=== PATIENT | female | born 1970 | race Caucasian/White ===

== ENCOUNTER 2017-08-02 16:17 | Observation (INO) | payer BC ==
[~2017-08-02] VITALS: Ht 162.6 cm; Wt 71.8 kg
[2017-08-02] MEDS ORDERED: SODIUM CHLORIDE 0.9% 1000ML 1,000 ML IV SCH (16:27)
--- NOTE | 2017-08-02 16:29 | DIAGNOSTIC IMAGING REPORT ---
HEAD WITHOUT CONTRAST (CT) CLINICAL HISTORY: 47 years-old Female presenting with Sudden onset right sided weakness with severe headache, stroke alert. TECHNIQUE: Multidetector CT imaging of the head was performed without the use of intravenous contrast. IV contrast: None. A dose lowering technique was used consistent with the principles of ALARA (as low as reasonably achievable). COMPARISON: None. CT DOSE (mGy.cm): The estimated cumulative dose is 679.75 mGycm. FINDINGS: Director Clinical Applications topogram: Unremarkable. Ventricles and sulci normal in size. Brain parenchyma normal in appearance with preserved tanner-white differentiation. No mass effect or midline shift. No hemorrhage or acute territorial infarct. No extra-axial fluid collection. Paranasal sinuses and mastoid air cells clear. Calvarium intact. IMPRESSION: 1. No acute intracranial pathology. Electronically signed by: Reji De Guzman M.D. 08/02/2017 4:28 PM Dictated Date/Time: 08/02/2017 4:26 PM
[2017-08-02 16:45] LABS: BASO % 0.7 %; BASO ABS # 0.05 K/uL (0-0.2); COMPLETE YES; EOS % 1.4 %; HEMATOCRIT 40.8 % (37-47); IG% 0.1 %; LYMPH % 31.2 %; LYMPH ABS # 2.19 K/uL (1.2-3.4); MEAN CELL VOLUME 86.6 fL (80-100); MEAN CORPUSCULAR HEMOGLOBIN 30.4 pg (25-34); MEAN PLATELET VOLUME 10.4 fL (7.4-10.4); MONO % 8.7 %; NEUT % 57.9 %; PLATELET COUNT 294 K/uL (130-400); RED BLOOD COUNT 4.71 M/uL (4.2-5.4); WHITE BLOOD COUNT 7.03 K/uL (4.8-10.8)
[2017-08-02 16:55] LABS: INR 0.9 (0.9-1.1); PARTIAL THROMBOPLASTIN RATIO 1.1; PROTHROMBIN TIME (PATIENT) 9.9 SECONDS (9.0-12.0)
[2017-08-02 17:03] LABS: BLOOD UREA NITROGEN 11 mg/dl (7-18); BUN/CREATININE RATIO 14.1 (10-20); CALCIUM 8.2 mg/dl (8.5-10.1); CARBON DIOXIDE 28 mmol/L (21-32); CHLORIDE 105 mmol/L (98-107); GLUCOSE 95 mg/dl (70-99); POTASSIUM 4.1 mmol/L (3.5-5.1); SODIUM 138 mmol/L (136-145)
[2017-08-02 17:08] LABS: CKMB/CK RATIO 1.2 (0-3.0)
[2017-08-02] MEDS ORDERED: KETOROLAC TROMETHAMINE 30 MG/ML VIAL IV STA (17:18)
[2017-08-02] MEDS ORDERED: PROCHLORPERAZINE 5 MG/ML 2 ML VIAL IV STA (17:18)
[2017-08-02] MEDS ORDERED: METHYLPREDNISOLONE 125 MG VIAL IV STA (17:18)
[2017-08-02] MEDS ORDERED: DiphenhydrAMINE HCL 50 MG/ML VIAL IV STA (17:18)
[2017-08-02] MEDS ORDERED: CITA40TA4 PO (17:30)
[2017-08-02] MEDS ORDERED: SYN200 PO (17:30)
[2017-08-02] MEDS ORDERED: PRM625 PO (17:30)
[2017-08-02] MEDS ORDERED: TRAM-10 PO (17:30)
[2017-08-02] MEDS ORDERED: IMITREX PO (17:30)
[2017-08-02] MEDS ORDERED: ONDANSETRON INJ 2 MG/ML 2 ML VIAL IV PRN (18:15)
[2017-08-02] MEDS ORDERED: ALUMINUM/MAGNESIUM/SIMETH (MAALOX MAX) 30 ML UDC PO PRN (18:15)
[2017-08-02] MEDS ORDERED: TRAMADOL HCL 50 MG TAB PO PRN (18:15)
[2017-08-02] MEDS ORDERED: PHARMACIST DISCHARGE MED REC CONSULT PRN (18:15)
[2017-08-02] MEDS ORDERED: ACETAMINOPHEN 325 MG TAB PO PRN (18:15)
[2017-08-02] MEDS ORDERED: NITROGLYCERIN 0.4 MG SL PER TAB CHARGE SL PRN (18:15)
[2017-08-02] MEDS ORDERED: SODIUM CHLORIDE 0.9% 1000ML 1,000 ML IV ONE (18:15)
[2017-08-02] MEDS ORDERED: MAGNESIUM HYDROXIDE SUSP 30 ML UDC PO PRN (18:15)
[2017-08-02] MEDS ORDERED: POLYETHYLENE (MIRALAX) 17 GM PACK PO PRN (18:15)
[2017-08-02] MEDS ORDERED: KETOROLAC TROMETHAMINE 15 MG/ML VIAL IM ONE (18:30)
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
[2017-08-02 20:17] VITALS: BP 123/76; PULSE 59; TEMP 36.7; O2SAT 94; Ht 162.6 cm; Wt 71.8 kg
[2017-08-02] MEDS: KETOROLAC TROMETHAMINE 30 MG/ML VIAL IV PRN (20:44)
[2017-08-02] MEDS ORDERED: LEVOTHYROXINE 200 MCG TAB PO SCH (21:00)
[2017-08-02] MEDS ORDERED: ESTROGENS, CONJUGATED 0.625 MG TAB PO SCH (21:00)
[2017-08-02] MEDS ORDERED: ATORVASTATIN 40 MG TAB PO SCH (21:00)
[2017-08-02] MEDS ORDERED: CITALOPRAM 40 MG TAB PO SCH (21:00)
[2017-08-02] MEDS ORDERED: IV FLUIDS COMPLETED PRN (22:00)
--- NOTE | 2017-08-02 23:03 | DIAGNOSTIC IMAGING REPORT ---
CAROTID DOPPLER NECK ART CLINICAL HISTORY: 47 years-old Female presenting with Stroke. TECHNIQUE: Real-time grayscale and color and spectral Doppler ultrasound imaging of the bilateral carotid arteries was performed. NASCET criteria was used in evaluating this study. COMPARISON: None. FINDINGS: Right: Common carotid: Patent. Peak systolic velocity 101 cm/s. Internal carotid artery: Mild atherosclerosis of the proximal ICA. Peak systolic velocity 65 cm/s. External carotid artery: Patent. Peak systolic velocity 74 cm/s. Systolic ratio: 0.64. Left: Common carotid: Patent. Peak systolic velocity 119 cm/s. Internal carotid artery: Mild atherosclerosis of the proximal ICA. Peak systolic velocity 67 cm/s. External carotid artery: Patent. Peak systolic velocity 71 cm/s. Systolic ratio: 0.56. Bilateral antegrade flow within the vertebral arteries. Reference ranges: Stenosis measurements are compared to reference velocity parameters. Normal ICA peak systolic velocity less than 125 cm/s. Normal ICA peak systolic velocity to common carotid artery velocity ratio is less than 2: less than 2 equates to less than 50% stenosis, 2-4 equates to 50-69% stenosis, greater than 4 equates to greater than or equal to 70% stenosis. Normal ICA end-diastolic velocity less than 40. Blood pressure Brachial: Right: 121/74 mmHg, Left: 120/70 mmHg. IMPRESSION: No hemodynamically significant stenosis seen within the carotid arteries. Electronically signed by: Reji De Guzman M.D. 08/02/2017 11:02 PM Dictated Date/Time: 08/02/2017 11:01 PM
[2017-08-02] MEDS ORDERED: GADAVIST IV PRN (23:30)
[2017-08-02 23:35] VITALS: BP 102/57; PULSE 66; TEMP 36.4; O2SAT 97
[2017-08-03 04:50] VITALS: BP 103/67; PULSE 68; TEMP 36.7; O2SAT 96
[2017-08-03 04:55] VITALS: BP 149/82; PULSE 89; TEMP 37.3; O2SAT 97
[2017-08-03] MEDS: KETOROLAC TROMETHAMINE 30 MG/ML VIAL IV PRN ×2 (05:06→11:14)
[2017-08-03 06:49] LABS: ESTIMATED AVERAGE GLUCOSE 105 mg/dl; HA1C FLAG Normal (Normal)
--- NOTE | 2017-08-03 07:16 | DIAGNOSTIC IMAGING REPORT ---
Brain MRI WITH AND WITHOUT CONTRAST HISTORY: Headaches. Stroke TECHNIQUE: Multiplanar multisequence MRI of the brain was performed both before and after the intravenous administration of contrast. COMPARISON STUDY: Head CT 08/02/2017. FINDINGS: There are no areas of restricted diffusion to suggest acute infarction. The midline structures are intact. The paranasal sinuses are clear. The mastoid air cells are clear. The ventricles and sulci are within normal limits for age. There is no mass, hematoma, midline shift. The major vascular flow-voids at the skull base are well maintained. Postcontrast sequences show no areas of abnormal enhancement. There is a prominent sulcus versus a small arachnoid cyst within the left posterior parietal location. This measures 1.4 cm. This is of doubtful clinical significance. IMPRESSION: No acute intracranial abnormality. Electronically signed by: Festus Frias M.D. 08/03/2017 7:14 AM Dictated Date/Time: 08/03/2017 7:09 AM
[2017-08-03 08:36] LABS: BASO % 0.1 %; BASO ABS # 0.01 K/uL (0-0.2); COMPLETE YES; HEMATOCRIT 39.5 % (37-47); IG% 0.1 %; LYMPH % 11.9 %; LYMPH ABS # 1.12 K/uL (1.2-3.4); MEAN CELL VOLUME 85.9 fL (80-100); MEAN CORPUSCULAR HEMOGLOBIN 30.2 pg (25-34); MEAN CORPUSCULAR HGB CONC 35.2 g/dl (32-36); MEAN PLATELET VOLUME 10.6 fL (7.4-10.4); MONO % 2.9 %; PLATELET COUNT 288 K/uL (130-400); WHITE BLOOD COUNT 9.42 K/uL (4.8-10.8)
[2017-08-03 08:37] VITALS: BP 106/70; PULSE 71; TEMP 36.6; O2SAT 95
[2017-08-03] MEDS ORDERED: ASPIRIN 81 MG ECTAB PO SCH (09:00)
[2017-08-03] MEDS ORDERED: PROPRANOLOL HCL 60 MG LA CAP PO SCH (09:00)
[2017-08-03 09:09] LABS: BLOOD UREA NITROGEN 11 mg/dl (7-18); BUN/CREATININE RATIO 17.8 (10-20); CALCIUM 8.4 mg/dl (8.5-10.1); CARBON DIOXIDE 26 mmol/L (21-32); CHLORIDE 106 mmol/L (98-107); CREATININE 0.63 mg/dl (0.60-1.20); GLUCOSE 125 mg/dl (70-99); POTASSIUM 3.8 mmol/L (3.5-5.1); SODIUM 137 mmol/L (136-145)
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
[2017-08-03 09:20] LABS: CHOLESTEROL 208 mg/dl (0-200); CHOLESTEROL/HDL RATIO 2.5; HDL CHOLESTEROL 83 mg/dl; LDL CHOLESTEROL CALCULATED 115 mg/dl; THYROID STIMULATING HORMONE 0.012 uIu/ml (0.300-4.500); TRIGLYCERIDES 48 mg/dl (0-150); VERY LOW DENSITY LIPOPROT CALC 10 mg/dl
[2017-08-03] MEDS ORDERED: VALPROATE SOD IV 500 MG in DEXTROSE 5% 50ML 50 ML IV SCH (10:00)
--- NOTE | 2017-08-03 10:30 | ECHOCARDIOGRAM REPORT ---
*NOTICE TO RECEIVING REPUBLICAN AGENCY This information is strictly Confidential and protected under [place] law. [place] law prohibits you from making any further disclosure of this information unless further disclosure is expressly permitted by the written consent of the person to whom it pertains or is authorized by law. A general authorization for the release of medical or other information is not sufficient for this purpose. Hospital accepts no responsibility if the information is made available to any other person, INCLUDING THE PATIENT. Interpretation Summary * Name: HARRY HOFFMAN Study Date: 08/03/2017 07:11 AM BP: 103/67 mmHg * Patient Location: .2T\S\S241\S\1 HR: 73 * : 1970 (M/d/yyyy) Gender: Female Height: 64 in * Age: 47 yrs Ethnicity: [place] Weight: 164 lb * Ordering Physician: Janice Washington * Referring Physician: Self, Referred * Performed By: Chana Mao RCS * * Reason For Study: CEREBRAL ISCHEMIA / EMBOLUS * BSA: 1.8 m2 * Normal transthoracic echocardiogram. * -- Conclusions -- * Left ventricular systolic function is normal. * Diastolic function is normal * Injection of contrast documented no interatrial shunt. Procedure Details * A complete two-dimensional transthoracic echocardiogram was performed (2D, M-mode, Doppler and color flow Doppler). * A saline contrast injection was performed to assess for cardiac shunting. * The injection was performed through an intravenous line in the left arm. * The attending nurse who injected the saline contrast was EDWARDO BETTENCOURT, RN. Left Ventricle * The left ventricle is not well visualized. * There is normal left ventricular wall thickness. * Left ventricular systolic function is normal. * Ejection Fraction = 60-65%. * Diastolic function is normal * The left ventricular wall motion is normal. Right Ventricle * The right ventricle is normal in size and function. Atria * The left atrial size is normal. * Right atrial size is normal. * Injection of contrast documented no interatrial shunt. Mitral Valve * The mitral valve anatomy is normal. * Significant mitral regurgitation is absent. Tricuspid Valve * The tricuspid valve anatomy is normal. * Significant tricuspid regurgitation is absent. Aortic Valve * The aortic valve is normal in structure and function. * The aortic valve is trileaflet. * No hemodynamically significant valvular aortic stenosis. * There is no significant aortic regurgitation. Great Vessels * The aortic root is normal size. Pericardium/Pleural * There is no pericardial effusion. MMode 2D Measurements and Calculations IVSd 1.0 cm IVSs 1.2 cm LVIDd 4.7 cm LVIDs 3.0 cm LVPWd 0.82 cm LVPWs 0.99 cm IVS/LVPW 1.3 FS 35.9 % EDV(Teich) 103.5 ml ESV(Teich) 35.8 ml EF(Teich) 65.4 % EDV(cubed) 105.4 ml ESV(cubed) 27.8 ml EF(cubed) 73.6 % % IVS thick 17.1 % % LVPW thick 21.1 % LV mass(C)d 150.6 grams LV mass(C)dI 83.8 grams/m\S\2 LV mass(C)s 97.4 grams LV mass(C)sI 54.2 grams/m\S\2 SV(Teich) 67.7 ml SI(Teich) 37.7 ml/m\S\2 SV(cubed) 77.6 ml SI(cubed) 43.1 ml/m\S\2 Ao root diam 2.7 cm Ao root area 5.6 cm\S\2 ACS 2.0 cm LA dimension 2.7 cm LA/Ao 1.0 LVOT diam 2.0 cm LVOT area 3.0 cm\S\2 Doppler Measurements and Calculations MV E max lindsey 78.7 cm/sec MV A max lindsey 77.1 cm/sec MV E/A 1.0 MV P1/2t max lindsey 92.3 cm/sec MV P1/2t 65.7 msec MVA(P1/2t) 3.3 cm\S\2 MV dec slope 411.5 cm/sec\S\2 MV dec time 0.21 sec Ao V2 max 115.6 cm/sec Ao max PG 5.3 mmHg Ao max PG (full) 2.1 mmHg [place](V,A) 2.4 cm\S\2 [place](V,D) 2.4 cm\S\2 LV V1 max PG 3.2 mmHg LV V1 max 90.1 cm/sec PA V2 max 94.9 cm/sec PA max PG 3.6 mmHg
[2017-08-03] MEDS ORDERED: METHYLPREDNISOLONE IV 500 MG in DEXTROSE 5% 250ML 250 ML IV SCH (11:00)
[2017-08-03] MEDS ORDERED: PROC1TAB5 PO (11:48)
[2017-08-03] MEDS ORDERED: TRAM-10 PO (11:48)
[2017-08-03] MEDS ORDERED: VLT50 PO (11:48)
[2017-08-03] MEDS ORDERED: METH4PAK PO (11:48)
[2017-08-03] MEDS ORDERED: INDSR60 PO (11:48)
--- NOTE | 2017-08-03 11:59 | Discharge Instructions ---
Discharge Instructions Date of Service Aug 03, 2017. Admission Reason for Admission: Stroke-Like Symptom Discharge Discharge Diagnosis / Problem: Complex migraine Discharge Goals Goal(s): Decrease discomfort, Improve function, Diagnostic testing, Therapeutic intervention Activity Recommendations Activity Limitations: resume your previous activity (as tolerated) . Instructions / Follow-Up Instructions / Follow-Up You were admitted to the hospital with a severe headache, changes in vision, as well as numbness, tingling, and weakness in the right side. You were admitted to rule out a stroke. Your head CT and brain MRI were both negative for stroke. You were evaluated by neurology. Your symptoms appear to be secondary to a complex migraine. Some changes have been made to your medications per neurology recommendations. As you are feeling better, you are medically stable for discharge. Medications: *You have been given a prescription for tramadol 50 mg by mouth every 6 hours as needed for pain/migraine. *You may take diclofenac 50 mg by mouth three times a day as needed for pain, as well as Compazine 10 mg by mouth every 6 hours as needed for migraine or nausea. *Please take your Medrol dose pack as instructed. This is an oral steroid. *You have been started on propranolol 60 mg by mouth daily for migraine prophylaxis. *Neurology has recommended that you STOP Imitrex as this is relatively contraindicated due to your right sided weakness that developed with this migraine. *Continue your other home medications as prescribed. Follow up: *You have been scheduled to follow up with Karo Gracia PA-C on August 10 at 10:45 am. *You have been scheduled to follow up with Luli Aparicio PA-C of neurology on August 30 at 10:00 am. Please seek medical attention if you experience fevers, chills, sweats, dizziness/lightheadedness, loss of consciousness, changes in vision, chest pain , shortness of breath, nausea, vomiting, weakness particularly on one side, numbness, or tingling. Current Hospital Diet Patient's current hospital diet: Regular Diet Discharge Diet Recommended Diet: Regular Diet Pending Studies Studies pending at discharge: no Laboratory Results Hemoglobin A1c Test 08/02/17 16:41 Range/Units Estimated Average Glucose 105 mg/dl Hemoglobin A1c 5.3 4.5-5.6 % Lipid Panel Test 08/03/17 08:13 Range/Units Triglycerides Level 48 0-150 mg/dl Cholesterol Level 208 H 0-200 mg/dl HDL Cholesterol 83 mg/dl Cholesterol/HDL Ratio 2.5 LDL Cholesterol, Calculated 115 mg/dl Medical Emergencies . Who to Call and When: Medical Emergencies: If at any time you feel your situation is an emergency, please call 911 immediately. . Non-Emergent Contact Non-Emergency issues call your: Primary Care Provider, Neurologist Call Non-Emergent contact if: you have a fever, your pain is not controlled, your pain is worsening, your pain is unusual for you, your pain is concerning you, you have any medication questions . Past History Medical & Surgical History: (1) Migraine . "Provider Documentation" section prepared by Yi Fritz. . VTE Core Measure Inpt VTE Proph given/why not?: Enoxaparin (Lovenox)Marely WILSON, SCD's [place] Drug Monitoring Program Search Results: patient reviewed within database, no issues identified
[2017-08-03] MEDS ORDERED: PROMETHAZINE HCL INJ 25 MG in SODIUM CHLORIDE 0.9% 50ML 50 ML IV SCH (12:00)
--- NOTE | 2017-08-03 12:07 | EMERGENCY ROOM VISIT NOTE ---
History Report prepared by Alok: Luis Wong Under the Supervision of: Dr. Matt Ramesh M.D. First contact with patient: 16:13 Stated Complaint: STROKE ALERT History of Present Illness The patient is a 47 year old female who presents to the Emergency Room by EMS with complaints of persistent stroke-like symptoms beginning one hour ago. Her symptoms include right arm weakness, difficulty walking, and a headache. She states that she had a headache all day today that was gradually worsening but then suddenly became excruciating one hour ago. The patient has a history of migraines with her most recent migraine occurring a few weeks ago. She states that her current symptoms do not feel like her typical migraine. She was given Fentanyl en route, but nothing has improved her symptoms. Source of History: patient Onset: One hour ago Quality: other (stroke-like symptoms) Timing: other (persistent) Modifying Factors (Relieving): other (none) Associated Symptoms: + headache, + weakness (right arm) Note: Additional symptoms: difficulty walking. Review of Systems See HPI for pertinent positives & negatives. A total of 10 systems reviewed and were otherwise negative. Past Medical & Surgical Medical Problems: (1) Migraine (2) Stroke-like symptom Family History No pertinent family history stated. Social History Marital Status: in relationship Current/Historical Medications Scheduled Citalopram (Citalopram Hydrobromide), 40 MG PO QPM Estrogens, Conjugated (Premarin), 0.625 MG PO QPM Levothyroxine Sodium (Synthroid), 200 MCG PO QPM Methylprednisolone (Medrol Dosepak), 1 PKT PO UD Propranolol HCl (Propranolol HCl ER), 60 MG PO QAM Scheduled PRN Diclofenac Sod (Diclofenac Sodium Dr), 50 MG PO TID PRN for Pain Prochlorperazine Maleate (Compazine), 1 TAB PO Q6 PRN for Migraine or nausea Tramadol (Ultram), 50 MG PO Q6 PRN for Pain [Imitrex], 1 DOSE PO Q8 PRN for Headache Allergies Coded Allergies: No Known Allergies (Unverified , 08/02/17) Physical Exam Vital Signs Date Time Temp Pulse Resp B/P (MAP) Pulse Ox O2 Delivery O2 Flow Rate FiO2 08/02/17 17:00 65 18 157/87 99 Room Air 08/02/17 16:40 80 14 153/81 99 Room Air 08/02/17 16:30 62 08/02/17 16:20 99 Room Air 08/02/17 16:19 36.7 61 18 135/76 97 Room Air Physical Exam GENERAL: Patient is uncomfortable appearing and in moderate distress. HEENT: No acute trauma, normocephalic atraumatic, mucous membranes moist, no nasal congestion, no scleral icterus. NECK: No stridor, no adenopathy, no meningismus, trachea is midline. LUNGS: No dyspnea. Clear to auscultation and equal bilaterally. No wheeze, no rhonchi. HEART: Regular rate and rhythm. No murmurs, rubs, gallops appreciated. ABDOMEN: Soft, nontender, bowel sounds positive, no masses appreciated, no peritonitis. BACK: No midline tenderness, no CVA tenderness EXTREMITIES: Normal motion all extremities, no cyanosis, no edema. NEUROLOGIC: Alert and oriented. Clenching of the right hand with good strength but slow movements. Able to life bilateral arms though periodically left arm drifts. Keeps eyes clenched throughout exam and only opens them briefly. SKIN: No rash, no jaundice, no diaphoresis. 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 Ventricles and sulci normal in size. Brain parenchyma normal in appearance with preserved tanner-white differentiation. No mass effect or midline shift. No hemorrhage or acute territorial infarct. No extra-axial fluid collection. Paranasal sinuses and mastoid air cells clear. Calvarium intact. IMPRESSION: 1. No acute intracranial pathology. Electronically signed by: Reji De Guzman M.D. 08/02/2017 4:28 PM Laboratory Results Test 08/02/17 16:20 08/02/17 16:41 08/02/17 16:45 08/02/17 16:46 Prothrombin Time 9.9 SECONDS (9.0-12.0) Prothromb Time International Ratio 0.9 (0.9-1.1) Activated Partial Thromboplast Time 27.4 SECONDS (21.0-31.0) Partial Thromboplastin Ratio 1.1 Total Creatine Kinase 49 U/L (26-192) Estimated Average Glucose 105 mg/dl Hemoglobin A1c 5.3 % (4.5-5.6) Bedside Prothrombin Time INR 0.9 (0.9-1.1) Bedside Glucose 99 mg/dl (70-90) Laboratory results as reviewed by me. Medications Administered Medications (Trade) Dose Ordered Sig/Anneliese Route Start Time Stop Time Status Last Admin Dose Admin Sodium Chloride 1,000 ml @ 50 mls/hr Q20H IV 08/02/17 16:27 08/02/17 18:17 DC 08/02/17 16:27 50 MLS/HR Ketorolac Tromethamine (Toradol Inj) 15 mg NOW STAT IV 08/02/17 17:18 08/02/17 17:20 DC 08/02/17 17:31 15 MG Prochlorperazine Edisylate (Compazine Inj) 10 mg NOW STAT IV 08/02/17 17:18 08/02/17 17:20 DC 08/02/17 17:31 10 MG Diphenhydramine HCl (Benadryl Inj) 50 mg NOW STAT IV 08/02/17 17:18 08/02/17 17:20 DC 08/02/17 17:31 50 MG Methylprednisolone Sodium Succinate (Solu-Medrol IV) 125 mg NOW STAT IV 08/02/17 17:18 08/02/17 17:20 DC 08/02/17 17:30 125 MG ECG Indication: other (Neurologic symptoms) Rate (beats per minute): 58 Rhythm: sinus bradycardia Findings: no acute ischemic change, no ectopy ED Course 1617: The patient was taken straight to CT. The patient was evaluated in room B1. A complete history and physical exam was performed. 1627: Ordered Sodium Chloride 1000 ml @ 50 mls/hr IV. 1718: Ordered Solu-Medrol 125 mg IV, Benadryl Inj 125 mg IV, Compazine Inj 10 mg IV, Toradol Inj 15 mg IV. 1730: Upon reevaluation, the patient is resting. Discussed results and treatment plan with the patient. She verbalized understanding and agreement with the treatment plan. The patient will be evaluated for further management. Medical Decision Differential: Headache, Migraine, Cluster Headache, Seizure, Meningitis, Sinusitis, CO exposure, ICH/SAH, Infectious, Tumor, Sinus Thrombosis, Arterial Dissection, amongst other pathologies entertained. 47 yr old female with long standing migraine history along with depression arrives for evaluation of headache associated with right sided weakness. Timeline a bit unclear though she initially, and EMS make very clear symptoms suddenly worsened around 3:15pm after initially starting with headache throughout the morning. Diffuse throbbing headache throughout AM, suddenly with significant worsening at 3:15pm associated with difficulty using right arm. Apparently unable to ambulate correctly for EMS. Patient makes clear primary concern is headache. Admits periodic ED visits for migraines to other hospitals. Neuro exam is somewhat varied with her being able to do pretty much entire neuro exam, but often requiring us to ask multiple times. Hand issues seem more spasm than inability to use hand. Given unusual symptomatology, but recent onset, felt Stroke Alert reasonable to get acute neurology evaluation. By this time patient now apparently stating symptoms worsened earlier in day. After extensive review by Neurologist decision between him and patient is to hold on TPA, which I think is reasonable. Patient will be brought in to hospital for further evaluation/treatment. I at this time opted to treat headache (which was previously held to avoid disturbing neuro exam/decision making). Above given and patient brought in to hospitalist service for further evaluation. I do not feel that this requires emergent LP as I do not feel this is meningitis/encephalitis and I do not feel that it is SAH, given recent onset symptoms with no blood on CT head. No evidence of dissection either. Consults Time Called: 1625 Consulting Physician: Dr. Webster -Neurology Returned Call: 1630 Discussed the patient's case. Dr. Webster will evaluate the patient. 1718: I spoke with Dr. Webster again. He does not feel that TPA is indicated. Additional Consults: Time Called: 1730 Consulted Physician: Dr. Jones -[facility] [place] Returned Call: 1736 Additional Comments: Discussed the patient's case. The patient will be evaluated for further treatment and disposition. Impression Primary Impression: Headache Additional Impression: Right sided weakness Scribe Attestation The scribe's documentation has been prepared under my direction and personally reviewed by me in its entirety. I confirm that the note above accurately reflects all work, treatment, procedures, and medical decision making performed by me. Departure Information Dispostion Being Evaluated By Hospitalist Prescriptions Methylprednisolone (MEDROL DOSEPAK) 4 Mg Joseph 1 PKT PO UD for 6 Days, #1 PKT Prov: Yi Fritz ., TYRON 08/03/17 Prochlorperazine Maleate (COMPAZINE) 10 Mg Tab 1 TAB PO Q6 Y for Migraine or nausea for 7 Days, #28 TAB 3 Refills Prov: Yi Fritz .TYRNO 08/03/17 Diclofenac Sod (Diclofenac Sodium Dr) 50 Mg Tabec 50 MG PO TID Y for Pain for 30 Days, #90 TABS Prov: Yi Fritz .TYRON 08/03/17 Propranolol HCl (Propranolol HCl ER) 60 Mg Cap 60 MG PO QAM for 30 Days, #30 CAP Prov: Yi Fritz .TYRON 08/03/17 Tramadol (Ultram) 50 Mg Tab 50 MG PO Q6 Y for Pain for 3 Days, #12 TAB Prov: Yi Fritz .TYRON 08/03/17 Problem Qualifiers
[2017-08-03 12:58] VITALS: BP 101/64; PULSE 74; TEMP 36.6; O2SAT 95
--- NOTE | 2017-08-03 17:02 | Discharge Summary ---
Discharge Summary Date of Service Aug 03, 2017. Discharge Summary Admission Date: Aug 02, 2017 at 18:08 Discharge Date: Aug 03, 2017 Discharge Disposition: Home Principal Diagnosis: Complex migraine Procedures: HEAD WITHOUT CONTRAST (CT) CLINICAL HISTORY: 47 years-old Female presenting with Sudden onset right sided weakness with severe headache, stroke alert. TECHNIQUE: Multidetector CT imaging of the head was performed without the use of intravenous contrast. IV contrast: None. A dose lowering technique was used consistent with the principles of ALARA (as low as reasonably achievable). COMPARISON: None. CT DOSE (mGy.cm): The estimated cumulative dose is 679.75 mGycm. 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 Ventricles and sulci normal in size. Brain parenchyma normal in appearance with preserved tanner-white differentiation. No mass effect or midline shift. No hemorrhage or acute territorial infarct. No extra-axial fluid collection. Paranasal sinuses and mastoid air cells clear. Calvarium intact. IMPRESSION: 1. No acute intracranial pathology. CAROTID DOPPLER NECK ART CLINICAL HISTORY: 47 years-old Female presenting with Stroke. TECHNIQUE: Real-time grayscale and color and spectral Doppler ultrasound imaging of the bilateral carotid arteries was performed. NASCET criteria was used in evaluating this study. COMPARISON: None. FINDINGS: Right: Common carotid: Patent. Peak systolic velocity 101 cm/s. Internal carotid artery: Mild atherosclerosis of the proximal ICA. Peak systolic velocity 65 cm/s. External carotid artery: Patent. Peak systolic velocity 74 cm/s. Systolic ratio: 0.64. Left: Common carotid: Patent. Peak systolic velocity 119 cm/s. Internal carotid artery: Mild atherosclerosis of the proximal ICA. Peak systolic velocity 67 cm/s. External carotid artery: Patent. Peak systolic velocity 71 cm/s. Systolic ratio: 0.56. Bilateral antegrade flow within the vertebral arteries. Reference ranges: Stenosis measurements are compared to reference velocity parameters. Normal ICA peak systolic velocity less than 125 cm/s. Normal ICA peak systolic velocity to common carotid artery velocity ratio is less than 2: less than 2 equates to less than 50% stenosis, 2-4 equates to 50-69% stenosis, greater than 4 equates to greater than or equal to 70% stenosis. Normal ICA end-diastolic velocity less than 40. Blood pressure Brachial: Right: 121/74 mmHg, Left: 120/70 mmHg. IMPRESSION: No hemodynamically significant stenosis seen within the carotid arteries. Brain MRI WITH AND WITHOUT CONTRAST HISTORY: Headaches. Stroke TECHNIQUE: Multiplanar multisequence MRI of the brain was performed both before and after the intravenous administration of contrast. COMPARISON STUDY: Head CT 08/02/2017. FINDINGS: There are no areas of restricted diffusion to suggest acute infarction. The midline structures are intact. The paranasal sinuses are clear. The mastoid air cells are clear. The ventricles and sulci are within normal limits for age. There is no mass, hematoma, midline shift. The major vascular flow-voids at the skull base are well maintained. Postcontrast sequences show no areas of abnormal enhancement. There is a prominent sulcus versus a small arachnoid cyst within the left posterior parietal location. This measures 1.4 cm. This is of doubtful clinical significance. IMPRESSION: No acute intracranial abnormality. Consultations: Neurology---Dr. Piper Medication Reconciliation New Medications: Diclofenac Sod (Diclofenac Sodium Dr) 50 Mg Tabec 50 MG PO TID PRN for Pain for 30 Days, #90 TABS Methylprednisolone (Medrol Dosepak) 4 Mg Joseph 1 PKT PO UD for 6 Days, #1 PKT Prochlorperazine Maleate (Compazine) 10 Mg Tab 1 TAB PO Q6 PRN for Migraine or nausea for 7 Days, #28 TAB 3 Refills Propranolol HCl (Propranolol HCl ER) 60 Mg Cap 60 MG PO QAM for 30 Days, #30 CAP Continued Medications: Citalopram (Citalopram Hydrobromide) 40 Mg Tab 40 MG PO QPM, TAB 3 Refills Estrogens, Conjugated (Premarin) 0.625 Mg Tab 0.625 MG PO QPM, TAB Levothyroxine Sodium (Synthroid) 200 Mcg Tab 200 MCG PO QPM Tramadol (Ultram) 50 Mg Tab 50 MG PO Q6 PRN for Pain for 3 Days, #12 TAB (This prescription has been renewed ) Discontinued Medications: [Imitrex] () 1 DOSE PO Q8 PRN for Headache Discharge Exam Patient feeling much better today. Still complains of a 5/10 headache but much improved. Denies blurry vision or vision changes today. Still with some tingling on right side but improved from yesterday. Some nausea due to headache but also improved. The patient denies fevers, chills, sweats, chest pain, palpitations, claudication, cough, wheezing, shortness of breath, vomiting , abdominal pain, dysuria, hematuria, urinary retention, paralysis, weakness. Review of Systems: Constitutional: No fever, No chills, No sweats Eyes: No worsening of vision, No eye pain, No diplopia ENT: No hearing loss, No sore throat, No trouble swallowing Respiratory: No cough, No wheezing Cardiovascular: No chest pain, No claudication, No palpitations Abdomen: + nausea, No pain, No vomiting Musculoskeletal: No joint pain, No muscle pain, No calf pain Genitourinary - Female: No dysuria, No urinary retention, No hematuria Neurologic: + numbness/tingling (right side, improved), No paralysis, No weakness Integumentary: No rash, No itch, No color change Physical Exam: General Appearance: WD/WN, no apparent distress Eyes: normal inspection, PERRL, EOMI, + pertinent finding (photosensitivity) ENT: normal ENT inspection, hearing grossly normal, pharynx normal Neck: supple, no JVD, trachea midline Respiratory/Chest: lungs clear, normal breath sounds, no respiratory distress Cardiovascular: regular rate, rhythm, no gallop, no murmur Abdomen / GI: normal bowel sounds, non tender, soft Extremities: normal inspection, no calf tenderness, no pedal edema Neurologic/Psychiatric: alert, normal mood/affect, oriented x 3 Skin: normal color, warm/dry, no rash Hospital Course 47 y/o female with a history of anxiety/depression, hypothyroidism, breast cancer, and migraines, who presented to the ED because severe headache/migraine , blurry vision and right sided numbness/tingling. Stroke-like symptoms, r/o CVA vs migraine--improving. CVA ruled out - Admit to tele for cardiac monitoring. No acute events, pt in SR with HR 60s- 70s - Cardiac enzymes negative x 3 - Head CT, brain MRI and carotid ultrasound negative - EKGs no ischemic changes - Echo unremarkable - A1c and lipids WNL - D/C ASA and statin as stroke ruled out - Consult neurology, appreciate recommendations: complex migraine. Start propranolol 60 mg PO qd for prophylaxis. Stop Imitrex as pt developed weakness w/migraine. D/C with Medrol dose pack, diclofenac, tramadol and compazine prn. F/u at neuro clinic in 1 month. Migraines: - IV Toradol PRN and Tylenol PO PRN - D/C Imitrex at discharge - D/C with propranolol, diclofenac and compazine per neuro recs above - Renewed 3 days of tramadol Hypothyroidism - Continue Synthroid 200 mcg daily - TSH 0.012. F/u with PCP regarding Synthroid dose Anxiety/depression -Continue Celexa 40 mg daily S/p hysterectomy -Continue Premarin DVT prophylaxis -VIKRAM fan and SCDs Code Status -Level I, FULL RESUSCITATION STATUS Total Time Spent: Greater than 30 minutes This includes examination of the patient, discharge planning, medication reconciliation, and communication with other providers. Discharge Instructions Please refer to the electronic Patient Visit Report (Discharge Instructions) for additional information. Additional Copies To Karo Peralta .BRANDIC
== END 2017-08-03 15:25 | disposition home or self-care (01) ==
LOC: C.EDB 16:17 → EEVIPCON 18:08 → C.2T 18:08 → ENRESERV 18:57
PROVIDERS: ADMIT Hospitalist; ATTEND Hospitalist
DX: G43.109 Migraine with aura, not intractable, without status migrainosus (principal); E03.9 Hypothyroidism, unspecified; F41.9 Anxiety disorder, unspecified; F32.9 Major depressive disorder, single episode, unspecified; Z85.3 Personal history of malignant neoplasm of breast; Z79.899 Other long term (current) drug therapy

== ENCOUNTER → 2017-12-18 | Outpatient (CLI) | payer BC ==
[~2017-12-18] MED LIST: CITA40TA4 PO; PRM625 PO; PROC1TAB5 PO; PROP60CA PO; SYN200 PO; TRAM-10 PO; VLT50 PO
== END | disposition home or self-care (01) ==
LOC: C.LABSPEC 12:03
PROVIDERS: ATTEND Family Medicine
DX: R39.9 Unspecified symptoms and signs involving the genitourinary system (principal)

== ENCOUNTER 2018-01-22 10:49 | Emergency (ER) | payer BC, OTHER ==
[~2018-01-22] VITALS: Ht 162.6 cm; Wt 82.6 kg
[2018-01-22 10:55] VITALS: TEMP 36.5; Ht 162.6 cm; Wt 82.6 kg
[2018-01-22] MEDS ORDERED: MAGNESIUM SULFATE 1GM / D5W 1 GM BAG IV STA (11:07)
[2018-01-22] MEDS ORDERED: PROCHLORPERAZINE 5 MG/ML 2 ML VIAL IV STA (11:07)
[2018-01-22] MEDS ORDERED: KETOROLAC TROMETHAMINE 30 MG/ML VIAL IV STA (11:07)
[2018-01-22] MEDS ORDERED: SODIUM CHLORIDE 0.9% 1000ML 1,000 ML IV STA (11:07)
[2018-01-22] MEDS ORDERED: DiphenhydrAMINE HCL 50 MG/ML VIAL IV STA (11:07)
[2018-01-22] MEDS ORDERED: TOPI50TA16 PO (11:16)
--- NOTE | 2018-01-22 11:42 | EMERGENCY ROOM VISIT NOTE ---
History Report prepared by Alok: Silvana Mi Under the Supervision of: Dr. Brent Lewis M.D. First contact with patient: 11:03 Chief Complaint: HEADACHE Stated Complaint: MIGRAINE History of Present Illness The patient is a 47 year old female who presents to the Emergency Room with complaints of a constant headache for the past 1.5 hours. The patient has a history of migraine headaches and states that this feels like her typical migraine headache. She is experiencing nausea, vomiting, and sensitivity to light and sound. She rates her current pain as a 10/10 in severity. Source of History: patient Onset: 1.5 hours [employer] Position: head Symptom Intensity: 10/10 Timing: constant Modifying Factors (Worsening): other (light/sound) Associated Symptoms: + nausea, + vomiting Review of Systems See HPI for pertinent positives & negatives. A total of 10 systems reviewed and were otherwise negative. Past Medical & Surgical Medical Problems: (1) Major depressive disorder, single episode, unspecified (2) Migraine (3) Stroke-like symptom Family History Patient reports no known family medical history. Social History Smoking Status: Never Smoker Drug Use: none Marital Status: in relationship Current/Historical Medications Scheduled Citalopram (Citalopram Hydrobromide), 40 MG PO QPM Estrogens, Conjugated (Premarin), 0.625 MG PO QPM Levothyroxine Sodium (Synthroid), 200 MCG PO QPM Propranolol HCl (Propranolol HCl ER), 60 MG PO QAM Topiramate (Topamax), 50 MG PO BID Allergies Coded Allergies: No Known Allergies (Unverified , 01/22/18) Physical Exam Vital Signs Date Time Temp Pulse Resp B/P (MAP) Pulse Ox O2 Delivery O2 Flow Rate FiO2 01/22/18 15:36 53 16 138/77 97 01/22/18 14:58 59 14 126/77 95 Room Air 01/22/18 13:57 69 14 118/59 98 Room Air 01/22/18 12:32 57 18 95/47 97 Room Air 01/22/18 10:55 36.5 69 18 133/87 97 Room Air Physical Exam GENERAL: Awake, alert, well-appearing, in no acute distress HENT: Normocephalic, atraumatic. Oropharynx unremarkable. EYES: Normal conjunctiva. Sclera non-icteric. NECK: Supple. No nuchal rigidity. FROM. No JVD. No evidence of meningitis or encephalitis on exam. RESPIRATORY: Clear to auscultation. CARDIAC: Regular rate, normal rhythm. Extremities warm and well perfused. Pulses equal. ABDOMEN: Soft, non-distended. No tenderness to palpation. No rebound or guarding. No masses. RECTAL: Deferred. MUSCULOSKELETAL: Chest examination reveals no tenderness. The back is symmetrical on inspection without obvious abnormality. There is no CVA tenderness to palpation. No joint edema. LOWER EXTREMITIES: Calves are equal size bilaterally and non-tender. No edema. No discoloration. NEURO: Normal sensorium. No sensory or motor deficits noted. SKIN: No rash or jaundice noted. Medical Decision & Procedures Medications Administered Medications (Trade) Dose Ordered Sig/Anneliese Route Start Time Stop Time Status Last Admin Dose Admin Sodium Chloride 1,000 ml @ 999 mls/hr Q1H1M STAT IV 01/22/18 11:07 01/22/18 12:07 DC 01/22/18 11:36 999 MLS/HR Prochlorperazine Edisylate (Compazine Inj) 10 mg NOW STAT IV 01/22/18 11:07 01/22/18 11:10 DC 01/22/18 11:36 10 MG Ketorolac Tromethamine (Toradol Inj) 30 mg NOW STAT IV 01/22/18 11:07 01/22/18 11:10 DC 01/22/18 11:35 30 MG Diphenhydramine HCl (Benadryl Inj) 50 mg NOW STAT IV 01/22/18 11:07 01/22/18 11:10 DC 01/22/18 11:36 50 MG Magnesium Sulfate (Magnesium Sulfate) 1 gm NOW STAT IV 01/22/18 11:07 01/22/18 11:10 DC 01/22/18 11:36 1 GM Valproate Sodium 500 mg/Dextrose 55 ml @ 55 mls/hr NOW STAT IV 01/22/18 12:05 01/22/18 13:04 DC 01/22/18 12:53 55 MLS/HR Ondansetron HCl (Zofran Inj) 4 mg NOW STAT IV 01/22/18 12:05 01/22/18 12:08 DC 01/22/18 12:53 4 MG Dexamethasone Sodium Phosphate (Dexamethasone Inj Pf) 10 mg 1205 IV 01/22/18 12:05 01/22/18 16:13 DC 01/22/18 13:04 10 MG Promethazine HCl 25 mg/Sodium Chloride 51 ml @ 204 mls/hr NOW STAT IV 01/22/18 13:59 01/22/18 14:13 DC 01/22/18 15:03 204 MLS/HR Sumatriptan Succinate (Imitrex Sq Inj) 6 mg NOW STAT SQ 01/22/18 13:59 01/22/18 14:01 DC 01/22/18 15:03 6 MG ED Course 1103: Past medical records reviewed. The patient was evaluated in room C9. A complete history and physical examination was performed. 1107: Magnesium Sulfate 1 gm IV, Benadryl 50 mg IV, Toradol 30 mg IV, Compazine 10 mg IV, NSS 1000 ml @ 999 mls/hr IV 1151: I reevaluated the patient. She has just now received the medications. 1205: Dexamethasone Sodium Phosphate 10 mg IV, Zofran 4 mg IV, Valproate Sodium 500 mg/Dextrose 55 ml @ 55 mls/hr IV 1246: The patient is still complaining of a headache. 1357: I updated the patient. 1359: Imitrex 6 mg SQ, Promethazine HCl 25 mg/Sodium Chloride 51 ml @ 204 mls/ hr IV 1453: I reassessed the patient at this time. She is feeling better and resting comfortably. I discussed the results and treatment plan with the patient. I answered all pertaining questions that she had. She expressed understanding and verbalized agreement. The patient will be discharged home. Medical Decision Differential diagnosis: Etiologies such as migraine headache, meningitis, sinusitis, CO exposure, ICH, SAH, infection, tumor, headache, sinus thrombosis, arterial dissection, as well as others were entertained. This is a 47-year-old female who presents the emergency department complaining of headache. Patient reports she has had headaches similar to this previously. She reports she is not having any right-sided weakness and has a normal physical examination. She was given a normal saline bolus here in the emergency department along with magnesium, Benadryl and Toradol. Repeat examination revealed some improvement the patient's symptoms. At this point the patient was then given Decadron as well as valproic acid. The patient reported improvement to a 7. At this point the patient was then given a subcu injection of triptan. Repeat examination revealed improvement the patient's symptoms. At this point I offered the patient more pain medication however she wishes to try it at home. I encouraged her to follow-up with neurology. Patient was in agreement with the treatment plan. Medication Reconcilliation Current Medication List: was personally reviewed by me Blood Pressure Screening Patient's blood pressure: Normal blood pressure Impression Primary Impression: Headache Scribe Attestation The scribe's documentation has been prepared under my direction and personally reviewed by me in its entirety. I confirm that the note above accurately reflects all work, treatment, procedures, and medical decision making performed by me. Departure Information Dispostion Home / Self-Care Referrals Bela Salazar DO (PCP) Forms HOME CARE DOCUMENTATION FORM, IMPORTANT VISIT INFORMATION Patient Instructions Headache Pain, My [facility] Additional Instructions Increase fluids next 48 hours Follow up with Neurologist You have been examined and treated today on an emergency basis only. This is not a substitute for, or an effort to provide, complete comprehensive medical care. It is impossible to recognize and treat all injuries or illnesses in a single emergency department visit. It is therefore important that you follow up closely with Dr Salazar. Call as soon as possible for an appointment. Thank you for your time and consideration. I look forward to speaking with you again soon. Please don't hesitate to call us if you have any questions. Problem Qualifiers Primary Impression: Headache Headache type: unspecified Headache chronicity pattern: unspecified pattern Intractability: not intractable Qualified Codes: R51 - Headache
[2018-01-22] MEDS ORDERED: DEXAMETHASONE INJ 10 MG in SYRINGE 0 ML IV STA (12:05)
[2018-01-22] MEDS ORDERED: DEXAMETHASONE **PF** INJ 10 MG/ML VIAL IV SCH (12:05)
[2018-01-22] MEDS ORDERED: VALPROATE SOD IV 500 MG in DEXTROSE 5% 50ML 50 ML IV STA (12:05)
[2018-01-22] MEDS ORDERED: ONDANSETRON INJ 2 MG/ML 2 ML VIAL IV STA (12:05)
[2018-01-22] MEDS ORDERED: PROMETHAZINE HCL INJ 25 MG in SODIUM CHLORIDE 0.9% 50ML 50 ML IV STA (13:59)
[2018-01-22] MEDS ORDERED: SUMATRIPTAN SUCCINATE 6 MG/0.5 ML VIAL SQ STA (13:59)
[2018-01-22 15:36] VITALS: BP 138/77; PULSE 53; O2SAT 97
== END 2018-01-22 15:33 | disposition home or self-care (01) ==
LOC: C.EDB 10:52 → C.EDC 15:33
DX: R51 Headache (principal); F32.9 Major depressive disorder, single episode, unspecified; Z79.899 Other long term (current) drug therapy

== ENCOUNTER → 2018-02-07 | Outpatient (CLI) | payer BC, OTHER ==
[~2018-02-07] MED LIST changes: -PROC1TAB5 PO; -PROP60CA PO; +PROP60CA14 PO; +TOPI50TA16 PO; -TRAM-10 PO; -VLT50 PO
== END | disposition home or self-care (01) ==
LOC: C.LABSPEC 15:40
PROVIDERS: ATTEND Family Medicine
DX: R39.9 Unspecified symptoms and signs involving the genitourinary system (principal)